=== PATIENT | male | born 1970 | race African-American/Black ===

== ENCOUNTER 2023-07-13 02:21 | Emergency (ER) | payer BC, SELFPAY ==
[2023-07-13] MEDS ORDERED: TDAP (DIPHTH,PERTUSS(ACELL),TET VAC) 0.5 ML VIAL IMVAC ONE (02:48)
[2023-07-13] MEDS ORDERED: NA CHLORIDE 0.9% 1,000 ML ONE (02:48)
[2023-07-13 03:05] LABS: Absolute Eosinophils 0.1 K/uL (0-0.5); Absolute Monocytes 0.8 K/uL (0.1-1.3); Absolute Neutrophil 7.4 K/uL (1.8-8.0); Basophils % 0.4 % (0-1.3); Eosinophils % 0.6 % (0-4.4); Hematocrit 38.9 % (39.6-49.0); Hemoglobin 13.2 g/dL (13.6-17.9); Lymphocytes % 10.4 % (15.3-44.8); MCH 30.9 pg (27.0-35.0); MCHC 33.9 g/dL (32.0-36.0); MCV 90.9 fL (80-100); MPV 7.2 fL (7.6-11.3); Monocytes % 8.2 % (3.3-12.3); Neutrophils % 80.4 % (41.7-73.7); Platelets 281 thou/uL (152-406); RBC Red Blood Cell Count 4.28 M/uL (4.33-5.43); Red Cell Distribution Width 14.2 % (12.1-15.2)
[2023-07-13 03:20] LABS: ALT/SGPT 33 U/L (16-61); AST/SGOT 16 U/L (15-37); Albumin 3.9 g/dL (3.4-5.0); Alkaline Phosphatase 74 U/L (45-117); Anion Gap 6.3 mEq/L (5.0-15.0); BUN Blood Urea Nitrogen 14 mg/dL (7-18); Bicarbonate 31 mEq/L (21-32); Bilirubin Direct 0.1 mg/dL (0-0.2); Bilirubin Indirect, Calculated 0.2 mg/dL (0.2-0.8); Bilirubin Total 0.3 mg/dL (0.2-1.0); Glomerular Filtration Rate 76 ml/min (=/>90); Glucose Level 112 mg/dL (74-106); Magnesium 2.4 mg/dL (1.6-2.4); NT PRO-BNP 27 pg/mL (<125); Potassium 3.3 mEq/L (3.5-5.1); Protein, Total 7.9 g/dL (6.4-8.2); Sodium Level 137 mEq/L (136-145); Troponin High Sensitivity 8.8 pg/mL (<58.9)
[2023-07-13 03:49] LABS: C-Reactive Protein < 2.90 mg/L (<3.00)
[2023-07-13] MEDS ORDERED: ONDANSETRON 4 MG/2 ML VIAL ONE (05:10)
[2023-07-13] MEDS ORDERED: LIDOCAINE 1% 20 ML MDV ONE (05:10)
[2023-07-13] MEDS ORDERED: KETOROLAC 30 MG/ML INJ ONE (05:11)
[2023-07-13] MEDS ORDERED: cloNIDine HCL 0.1 MG TAB ONE (05:11)
[2023-07-13] MEDS ORDERED: MORPHINE 4 MG/ML SYR ONE ×2 (05:11→06:47)
--- NOTE | 2023-07-13 05:43 | EDPHYS ---
Physician Documentation [facility] Name: Valdez Aguiar Age: 52 yrs Sex: Male : 1970 Arrival Date: 07/13/2023 Time: 02:21 Bed 5 Private MD: ED Physician Joe Hwang HPI: 07/12 02:37 This 52 yrs old Black Male presents to ER via EMS with complaints of Fall Injury. sp4 05:33 52-year-old male presents by EMS after reported syncopal episode and fall at his job at [employer]. Presents with multiple facial contusions and lacerations. Patient reported that one of his teeth was knocked out. Patient states has had syncopal episode and fell face into the gravel. This happened roughly just after midnight. Patient was brought here with EMS.. Historical: - Allergies: 02:28 No Known Allergies; bm8 - Home Meds: 02:28 None [Active]; bm8 - PMHx: 02:28 None; bm8 - PSHx: 02:28 Unable to Obtain; bm8 - Immunization history:: Adult Immunizations unknown. - Infectious Disease History:: Denies. - Social history:: Smoking status: Patient reports the use of cigarette tobacco products, cigars. - Family history:: not pertinent. ROS: 05:33 Constitutional: Negative for fever, chills, and weight loss, positive facial injuries, sp4 positive syncope 05:33 All other systems are negative, Exam: 05:32 Constitutional: This is a well developed, well nourished patient who is awake, alert, sp4 and in no acute distress. Head/Face: Normocephalic, are multiple facial contusions and multiple facial abrasions including significant laceration to upper forehead and also laceration to philtrum. Patient has missing left upper incisor. Eyes: Pupils equal round and reactive to light, extra-ocular motions intact. Lids and lashes normal. Conjunctiva and sclera are not injected. Cornea within normal limits. Periorbital areas with no swelling, redness, or edema. ENT: Nares patent. No nasal discharge, no septal abnormalities noted. Tympanic membranes are normal and external auditory canals are clear. Oropharynx with no redness, swelling, or masses, exudates, or evidence of obstruction, uvula midline. Mucous membranes moist. Neck: Trachea midline, no thyromegaly or masses palpated, and no cervical lymphadenopathy. Supple, full range of motion without nuchal rigidity, or vertebral point tenderness. Chest/axilla: Normal chest wall appearance and motion. Nontender with no deformity. No lesions are appreciated. Cardiovascular: Regular rate and rhythm with a normal S1 and S2. No gallops, murmurs, or rubs. Normal PMI, no JVD. No pulse deficits. Respiratory: Lungs have equal breath sounds bilaterally, clear to auscultation and percussion. No rales, rhonchi or wheezes noted. No increased work of breathing, no retractions or nasal flaring. Abdomen/GI: Soft, with normal bowel sounds. No distension or tympany. No guarding or rebound. No evidence of tenderness throughout. Back: No spinal tenderness. No costovertebral tenderness. Male : Normal genitalia with no discharge or lesions. Skin: Warm, dry with normal turgor. Normal color with no rashes, no lesions, and no evidence of cellulitis. MS/ Extremity: Pulses equal, no cyanosis. Neurovascular intact. Full, normal range of motion. Neuro: Awake and alert, GCS 15, oriented to person, place, time, and situation. Cranial nerves II-XII grossly intact. Motor strength 5/5 in all extremities. Sensory grossly intact. Psych: Awake, alert, with orientation to person, place and time. Behavior, mood, and affect are within normal limits 05:32 ECG was reviewed by the Attending Physician. EKG at 0 233, normal sinus rhythm normal EKG Vital Signs: 02:26 BP 187 / 110; Pulse 64; Resp 16; Temp 97; Pulse Ox 97% on R/A; Pain 8/10; bm8 05:26 BP 161 / 107; Pulse 84; Resp 17; Temp 97; Pulse Ox 99% on R/A; Pain 6/10; bm8 06:27 BP 154 / 100; Pulse 77; Resp 18; Temp 97.3; Pulse Ox 97% ; Pain 4/10; bm8 02:26 Pain Scale: Adult bm8 05:26 Pain Scale: Adult bm8 06:27 Pain Scale: Adult bm8 [place] Com[place] Score: 02:35 Eye Response: spontaneous(4). Motor Response: obeys commands(6). Verbal Response: bm8 oriented(5). Total: 15. 05:26 Eye Response: spontaneous(4). Motor Response: obeys commands(6). Verbal Response: bm8 oriented(5). Total: 15. Laceration: 06:39 Wound Repair of 2cm ( 0.8in ) subcutaneous laceration to forehead. Irregularly shaped.. sp4 Hemostasis noted.. Distal neuro/vascular/tendon intact. Anesthesia: Wound infiltrated with 6 mls of 1% lidocaine. Wound prep: Moderate cleansing by me, Copious irrigation. Skin closed with 3 4-0 Prolene using interrupted sutures and sterile technique. Dressed with non-adherent dressing. Patient tolerated well. 06:41 Wound Repair of 2cm ( 0.8in ) subcutaneous laceration to nasal septum. Irregularly sp4 shaped.. Hemostasis noted.. Gross contamination.. Distal neuro/vascular/tendon intact. Anesthesia: Wound infiltrated with 5 mls of 1% lidocaine. Wound prep: Moderate cleansing by me, Copious irrigation. Skin closed with 3 4-0 Prolene using interrupted sutures and sterile technique. Dressed with left to air. Patient tolerated well. 06:41 Wound Repair of 2cm ( 0.8in ) subcutaneous laceration to philtrum. Irregularly shaped.. sp4 Hemostasis noted.. Gross contamination.. Distal neuro/vascular/tendon intact. Anesthesia: Wound infiltrated with 2 mls of 1% lidocaine. Wound prep: Moderate cleansing by me, Copious irrigation. Skin closed with 4 4-0 Prolene using interrupted sutures and sterile technique. Dressed with left to air . Patient tolerated well. MDM: 02:39 Patient medically screened. sp4 04:20 ED course: IMPRESSION: 1. Vertical fracture through the left of midline frontal sp4 calvarium, extending through the left frontal sinus and into the superior medial left orbital roof and lamina papyracea. Additional vertical fracture extension through the lateral aspect of the anterior left maxillary sinus wall. 2. Hemorrhage demonstrated in the left greater than right maxillary sinuses, left frontal sinus, and bilateral ethmoid air cells. 3. Gas demonstrated within the superior left anterior extraconal space, as well as along the posterior lateral margins of the left maxillary sinus. 4. Impacted fractures of the bilateral nasal bones with overlying soft tissue swelling. 5. Mild right frontal scalp and left supraorbital soft tissue contusions. 6. No acute intracranial abnormality. No acute osseous abnormality of the cervical spine. Dr. Sosa discussed these findings regarding the left frontal calvarial fracture with left orbital and paranasal sinus involvement with Joe Hwang MD via telephone at approximately 04:32 hours EST on 07/13/2023.. ED course: CT report - COMPARISON: No relevant prior studies available. FINDINGS: BRAIN: No extra-axial fluid collection. No intracranial hemorrhage. No focal arenas-white matter differentiation abnormality. MIDLINE SHIFT: No midline shift. VENTRICLES: Unremarkable No ventriculomegaly. SKULL: Impacted fractures of the bilateral nasal bones with overlying soft tissue swelling. Vertical fracture through the left of midline frontal calvarium, extending through the left frontal sinus and into the superior medial left orbital ceiling and lamina papyracea. Nondisplaced sagittally oriented fracture through the lateral aspect of the anterior left maxillary sinus wall. Hemorrhage demonstrated in the left greater than right maxillary sinuses, left frontal sinus, and bilateral ethmoid air cells. Gas demonstrated within the superior left anterior extraconal space, as well as along the posterior lateral margins of the left maxillary sinus. SINUSES: See findings above and below. MASTOID AIR CELLS: Unremarkable as visualized. No mastoid effusion. ORBITS: No intraorbital hematoma is identified. The bilateral globes appear intact. VERTEBRAE: Multilevel cervical spondylosis. Reversal of the normal lordosis of the cervical spine as the patient is positioned. Appearance is nonspecific and could be positional or seen with muscular strain or spasm. No acute fracture or acute vertebral body height loss. No significant subluxation. DISCS/SPINAL CANAL/NEURAL FORAMINA: No acute findings. No transtentorial herniation. No significant kylie spinal canal stenosis. SOFT TISSUES: Mild right frontal scalp and left supraorbital soft tissue contusions, with some subcutaneous emphysema suggesting laceration. No abnormal prevertebral soft tissue swelling. OTHER FINDINGS: Dens is intact. No dislocation. Craniocervical orientation is normal.. 05:43 Data reviewed: vital signs, nurses notes, EMS record, lab test result(s), EKG, sp4 radiologic studies, CT scan, plain films. 06:41 Differential diagnosis: abrasion, closed head injury, contusion, fracture, laceration, sp4 multiple trauma, sprain, strain. Consideration of Admission/Observation Escalation of care including admission/observation considered. ED course: Patient at this time stable for EMS transfer to [facility] for further evaluation. 07/12 02:36 Order name: Basic Metabolic Panel; Complete Time: 04:00 4 07/12 02:36 Order name: CBC with Diff; Complete Time: 04:00 [facility] 07/12 02:36 Order name: LFT's; Complete Time: 04:00 4 07/12 02:36 Order name: Magnesium; Complete Time: 04:00 4 07/12 02:36 Order name: NT PRO-BNP; Complete Time: 04:00 [facility] 07/12 02:36 Order name: PT-INR; Complete Time: 04:00 4 07/12 02:36 Order name: Troponin HS; Complete Time: 04:00 [facility] 07/12 02:36 Order name: Urine Drug Screen [facility] 07/12 02:36 Order name: Alcohol Level; Complete Time: 04:00 [facility] 07/12 02:37 Order name: CRP; Complete Time: 04:00 [facility] 07/12 02:37 Order name: TSH; Complete Time: 04:00 [facility] 07/12 02:37 Order name: T4 Free; Complete Time: 04:00 [facility] 07/12 02:36 Order name: CT Head C Spine [facility] 07/12 02:36 Order name: CT Facial Bones W/O Con [facility] 07/12 02:37 Order name: Chest Single View XRAY 4 07/12 05:44 Order name: Shoulder Right (2 View) XRAY [facility] 07/12 05:44 Order name: Shoulder Left (2 View) XRAY 4 07/12 02:36 Order name: Cardiac monitoring; Complete Time: 02:53 [facility] 07/12 02:36 Order name: EKG - Nurse/Tech; Complete Time: 02:37 [facility] 07/12 02:36 Order name: IV Saline Lock; Complete Time: 02:53 [facility] 07/12 02:36 Order name: Labs collected and sent; Complete Time: 02:53 [facility] 07/12 02:36 Order name: O2 Per Protocol; Complete Time: 02:53 [facility] 07/12 02:36 Order name: O2 Sat Monitoring; Complete Time: 02:53 [facility] 07/12 04:57 Order name: Dressing - Wound; Complete Time: 05:26 [facility] 07/12 04:57 Order name: Gloves, Sterile; Complete Time: 05:26 sp4 07/12 04:57 Order name: Setup Suture Tray; Complete Time: : sp4 EC:32 Rate is 67 beats/min. Rhythm is regular, Normal Sinus Rhythm. QRS [place] is Normal. DC sp4 interval is normal. QRS interval is normal. QT interval is normal. No Q waves. T waves are Normal. No ST changes noted. Clinical impression: Normal ECG. Interpreted by me. Reviewed by me. Administered Medications: 02:52 Drug: NS 0.9% IV 1000 ml IV at 1 bolus Per protocol; 1000 mL bolus Route: IV; Rate: 1 bm8 bolus; Site: right antecubital; 06:55 Follow up: Response: No adverse reaction; IV Status: Completed infusion; IV Intake: bm8 1000ml 02:52 Drug: Boostrix Tdap IM 0.5 ml IM once; as a single dose Route: IM; Site: right deltoid; bm8 02:55 Follow up: Pin or Peg lot: [id number] exp date: 03/28/25 bm8 05:24 Drug: cloNIDine PO 0.1 mg PO once Route: PO; bm8 06:26 Follow up: Response: No adverse reaction bm8 05:25 Drug: Ondansetron IVP 4 mg IVP once; over 2 minutes Route: IVP; Site: right antecubital;bm8 06:27 Follow up: Response: No adverse reaction bm8 05:26 Drug: morphine IVP or IV 4 mg IVP once over 4 mins Route: IVP; Infused Over: 4 mins; bm8 Site: right antecubital; 06:27 Follow up: Response: No adverse reaction bm8 05:26 Drug: Ketorolac IVP 30 mg IVP once Route: IVP; Site: right antecubital; bm8 06:27 Follow up: Response: No adverse reaction bm8 06:26 Drug: Lidocaine Infiltration (1 %) 20 ml 20 ml Infiltration once; to bedside Volume: 20 bm8 ml; Route: Infiltration; 06:27 Follow up: Response: No adverse reaction bm8 06:51 Drug: morphine IVP or IV 4 mg IVP once over 4 mins Route: IVP; Infused Over: 4 mins; bm8 Site: right antecubital; 06:52 Follow up: Response: No adverse reaction; Medication administered at discharge. bm8 Disposition Summary: 07/13/23 05:42 Transfer Ordered Notes: Transfer Location: [facility]-System sp4 Reason: Higher level of care sp4 Condition: Stable sp4 Problem: new sp4 Symptoms: have improved sp4 Accepting Physician: [facility] Trauma Surgery (07/13/23 06:53) bm8 Diagnosis - Left frontal bone fracture, left frontal calvarial fracture, left frontal sinus sp4 fracture, orbital little fracture, additional vertical fracture extending from the left maxillary sinus. - Syncope and collapse, left maxillary sinus hemorrhage, left periorbital contusion, sp4 left intraorbital air, bilateral nasal bone fracture, forehead laceration, nasal philtrum laceration Forms: - Medication Reconciliation Form sp4 - SBAR form sp4 Signatures: Dispatcher [employer] EDMS Shabana Posey RN RN [id number] Joe Hwang MD MD sp4 Néstor Stephen RN RN bm8 Corrections: (The following items were deleted from the chart) 02:37 02:37 BASIC METABOLIC PANEL+C.LAB.BRZ ordered. EDMS EDMS 02:37 02:37 CBC+H.LAB.BRZ ordered. EDMS EDMS 02:37 02:37 HEPATIC FUNCTION+C.LAB.BRZ ordered. EDMS EDMS 02:37 02:37 MAGNESIUM+C.LAB.BRZ ordered. EDMS EDMS 02:37 02:37 PROBNP+C.LAB.BRZ ordered. EDMS EDMS 02:37 02:37 PROTIME (+INR)+COAG.LAB.BRZ ordered. EDMS EDMS 02:37 02:37 Troponin High Sensitivity+C.LAB.BRZ ordered. EDMS EDMS 02:37 02:37 URINE DRUG SCREEN+UC.LAB.BRZ ordered. EDMS EDMS 02:37 02:37 ETHANOL+C.LAB.BRZ ordered. EDMS EDMS 02:37 02:37 Head C Spine MPR Wo Con+CT.RAD.BRZ ordered. EDMS EDMS 02:37 02:37 Facial Bones W/ MPR+CT.RAD.BRZ ordered. EDMS EDMS 05:44 05:44 Shoulder Left 2 View+RAD.RAD.BRZ ordered. EDMS EDMS 06:35 05:42 [facility] Trauma Surgery sp4 sp4 06:53 06:35 [facility] Trauma Surgery sp4 bm8
--- NOTE | 2023-07-13 05:43 | ER ---
Nurse's Notes [facility] Name: Valdez Aguiar Age: 52 yrs Sex: Male : 1970 Arrival Date: 07/13/2023 Time: 02:21 Bed 5 Private MD: Diagnosis: Left frontal bone fracture, left frontal calvarial fracture, left frontal sinus fracture, orbital little fracture, additional vertical fracture extending from the left maxillary sinus. ;Syncope and collapse, left maxillary sinus hemorrhage, left periorbital contusion, left intraorbital air, bilateral nasal bone fracture, forehead laceration, nasal philtrum laceration Presentation: 07/12 02:26 Chief complaint: EMS states: pt was going out for a smoke break and tripped over bm8 something on the way out. pt has injuries to face, missing at least two front teeth, and c/o head and neck pain. this occurred around 0015 this morning. Coronavirus screen: At this time, the client does not indicate any symptoms associated with coronavirus-19. Ebola Screen: Patient negative for fever greater than or equal to 101.5 degrees Fahrenheit, and additional compatible Ebola Virus Disease symptoms Patient denies exposure to infectious person. Patient denies travel to an Ebola-affected area in the 21 days before illness onset. No symptoms or risks identified at this time. Initial Sepsis Screen: Does the patient meet any 2 criteria? No. Patient's initial sepsis screen is negative. Does the patient have a suspected source of infection? No. Patient's initial sepsis screen is negative. Risk Assessment: Do you want to hurt yourself or someone else? Patient reports no desire to harm self or others. Onset of symptoms was July 13, 2023 at 00:15. 02:26 Method Of Arrival: EMS: [facility] bm8 02:26 Acuity: KATHRYN 3 bm8 Triage Assessment: 02:28 General: Appears in no apparent distress. uncomfortable, Behavior is calm, drowsy. bm8 Pain: Complains of pain in scalp and posterior cervical area Pain does not radiate. Pain currently is 8 out of 10 on a pain scale. Quality of pain is described as aching, crampy, Pain began 2 hours ago. EENT: Poor dentition noted. Absence of teeth noted - upper left central incisor (#9), upper left lateral incisor (#10) and upper left cuspid (#11) Reports pain in forehead, nose and mouth. Neuro: Level of Consciousness is awake, alert, obeys commands, Oriented to person, place, time, situation, Appropriate for age Reports loss of consciousness after fall. Cardiovascular: No deficits noted. Heart tones S1 S2 present Capillary refill < 3 seconds Patient's skin is warm and dry. Respiratory: Airway is patent Respiratory effort is even, unlabored, Respiratory pattern is regular, symmetrical, Breath sounds are clear bilaterally. GI: No deficits noted. No signs and/or symptoms were reported involving the gastrointestinal system. : No deficits noted. No signs and/or symptoms were reported regarding the genitourinary system. Derm:. Injury Description: Abrasion sustained to face Head injury sustained to face. Historical: - Allergies: 02:28 No Known Allergies; bm8 - Home Meds: : None [Active]; bm8 - PMHx: : None; bm8 - PSHx: 02:28 Unable to Obtain; bm8 - Immunization history:: Adult Immunizations unknown. - Infectious Disease History:: Denies. - Social history:: Smoking status: Patient reports the use of cigarette tobacco products, cigars. - Family history:: not pertinent. Screenin:35 [facility] ED Fall Risk Assessment (Adult) History of falling in the last 3 months, bm8 including since admission Yes- single mechanical fall (1 pt) Confusion or Disorientation No (0 pts) Intoxicated or Sedated No (0 pts) Impaired Gait No (0 pts) Mobility Assist Device Used No (0 pt) Altered Elimination No (0 pt) Score/Fall Risk Level 0 - 2 = Low Risk Oriented to surroundings, Maintained a safe environment, Educated pt \T\ family on fall prevention, incl call for assistance when getting out of bed. Abuse screen: Denies threats or abuse. Nutritional screening: No deficits noted. Tuberculosis screening: No symptoms or risk factors identified. Assessment: 02:35 Reassessment: see triage note. bm8 05:26 Reassessment: Patient appears in no apparent distress at this time. Patient and/or bm8 family updated on plan of care and expected duration. Pain level reassessed. Patient is alert, oriented x 3, equal unlabored respirations, skin warm/dry/pink. General: Appears in no apparent distress. uncomfortable, Behavior is calm, cooperative, appropriate for age. Pain: Complains of pain in face Pain does not radiate. Pain currently is 6 out of 10 on a pain scale. Quality of pain is described as aching, Current management is with Morphine, toradol. Neuro: Level of Consciousness is awake, alert, obeys commands, Oriented to person, place, time, situation, Appropriate for age Medical Office Representative are equal bilaterally Moves all extremities. Full function Speech is normal, Facial symmetry appears normal, Pupils are PERRLA, Intact Denies blurred vision dizziness. Cardiovascular: Capillary refill < 3 seconds Patient's skin is warm and dry. Respiratory: No deficits noted. Airway is patent Respiratory effort is even, unlabored, Respiratory pattern is regular, symmetrical, Breath sounds are clear bilaterally. GI: No deficits noted. No signs and/or symptoms were reported involving the gastrointestinal system. : No deficits noted. No signs and/or symptoms were reported regarding the genitourinary system. EENT: Absence of teeth noted - upper left cuspid (#11) and upper left lateral incisor (#10) and upper left central incisor (#9) Reports at least one more loose tooth, possibly two. Injury Description: Abrasion sustained to face Laceration sustained to top of head, forehead and nose is clean, jagged, 0.5 to 2.5 cm long, not bleeding. Vital Signs: 02:26 BP 187 / 110; Pulse 64; Resp 16; Temp 97; Pulse Ox 97% on R/A; Pain 8/10; bm8 05:26 BP 161 / 107; Pulse 84; Resp 17; Temp 97; Pulse Ox 99% on R/A; Pain 6/10; bm8 06:27 BP 154 / 100; Pulse 77; Resp 18; Temp 97.3; Pulse Ox 97% ; Pain 4/10; bm8 02:26 Pain Scale: Adult bm8 05:26 Pain Scale: Adult bm8 06:27 Pain Scale: Adult bm8 Jerson Coma Score: 02:35 Eye Response: spontaneous(4). Motor Response: obeys commands(6). Verbal Response: bm8 oriented(5). Total: 15. 05:26 Eye Response: spontaneous(4). Motor Response: obeys commands(6). Verbal Response: bm8 oriented(5). Total: 15. ED Course: 02:23 Patient arrived in ED. wm 02:25 Néstor Stephen, RN is Primary Nurse. bm8 02:28 Triage completed. bm8 02:28 Arm band placed on right wrist. Patient placed in an exam room, on a stretcher. bm8 02:35 Joe Hwang MD is Attending Physician. sp4 02:35 Patient has correct armband on for positive identification. Bed in low position. Call bm8 light in reach. Side rails up X 1. Adult w/ patient. Client placed on continuous cardiac and pulse oximetry monitoring. NIBP monitoring applied. Pulse ox on. NIBP on. Door closed. Noise minimized. Warm blanket given. Verbal reassurance given. 02:[address] via stretcher. bm8 02:53 Initial lab(s) drawn, by me, sent to lab. Inserted saline lock: 20 gauge in right bm8 antecubital area, using aseptic technique. Blood collected. 02:59 CT Head C Spine In Process Unspecified. EDMS 02:59 CT Facial Bones W/O Con In Process Unspecified. EDMS 03:36 Chest Single View XRAY In Process Unspecified. EDMS 05:[address] [facility], spoke with Carol Ziegler. 05:26 Provided Education on: discussed possible need for transfer.. cardiac monitor on. Door bm8 closed. Noise minimized. Lights dimmed. Warm blanket given. Verbal reassurance given. Head of bed elevated. 05:26 One-on-one care X 15 minutes. bm8 05:26 Assist provider with laceration repair on head that was between 2.6 to 7.5 cm using bm8 sutures. Set up tray. Performed by Joe Hwang MD Dressed with Neosporin, Patient tolerated well. Irrigation of laceration on face irrigated with normal saline Hibiclens solution Patient tolerated well. 05:[address] [facility] ER by Dr. Miller, S \T\ [id number] per Carol Ziegler. wm 06:07 Shoulder Right (2 View) XRAY In Process Unspecified. EDMS 06:07 Shoulder Left (2 View) XRAY In Process Unspecified. EDMS 06:14 EMS will transport with an ETA of clam picker \T\ [id number]. wm 06:53 Patient transferred, IV remains in place. bm8 Administered Medications: 02:52 Drug: NS 0.9% IV 1000 ml IV at 1 bolus Per protocol; 1000 mL bolus Route: IV; Rate: 1 bm8 bolus; Site: right antecubital; 06:55 Follow up: Response: No adverse reaction; IV Status: Completed infusion; IV Intake: bm8 1000ml 02:52 Drug: Boostrix Tdap IM 0.5 ml IM once; as a single dose Route: IM; Site: right deltoid; bm8 02:55 Follow up: PowerPot lot: [id number] exp date: 03/28/25 bm8 05:24 Drug: cloNIDine PO 0.1 mg PO once Route: PO; bm8 06:26 Follow up: Response: No adverse reaction bm8 05:25 Drug: Ondansetron IVP 4 mg IVP once; over 2 minutes Route: IVP; Site: right antecubital;bm8 06:27 Follow up: Response: No adverse reaction bm8 05:26 Drug: morphine IVP or IV 4 mg IVP once over 4 mins Route: IVP; Infused Over: 4 mins; bm8 Site: right antecubital; 06:27 Follow up: Response: No adverse reaction bm8 05:26 Drug: Ketorolac IVP 30 mg IVP once Route: IVP; Site: right antecubital; bm8 06:27 Follow up: Response: No adverse reaction bm8 06:26 Drug: Lidocaine Infiltration (1 %) 20 ml 20 ml Infiltration once; to bedside Volume: 20 bm8 ml; Route: Infiltration; 06:27 Follow up: Response: No adverse reaction bm8 06:51 Drug: morphine IVP or IV 4 mg IVP once over 4 mins Route: IVP; Infused Over: 4 mins; bm8 Site: right antecubital; 06:52 Follow up: Response: No adverse reaction; Medication administered at discharge. bm8 Medication: 02:53 Vaccine Information Statement (VIS) provided today. Questions and/or concerns bm8 addressed. VIS edition date: October 16, 2020. Intake: 06:55 IV: 1000ml; Total: 1000ml. bm8 Outcome: 05:42 ER care complete, transfer ordered by sp4 06:51 Transferred by ground EMS to [facility], Transfer form bm8 completed. X-rays sent w/ patient. Note: REPORT GIVEN TO TAVERAS RN AT [facility] 06:51 Condition: stable 06:51 Instructed on the need for transfer, Demonstrated understanding of instructions, follow-up care, 06:53 Patient left the ED. bm8 Signatures: Dispatcher [employer] Shyann Go Sergey, MD MD sp4 Néstor Stephen RN RN bm8 Corrections: (The following items were deleted from the chart) 02:54 02:35 VIS not applicable for this client. bm8 bm8
[2023-07-13 07:04] LABS: Barbiturates NEGATIVE (NEGATIVE); Benzodiazepines NEGATIVE (NEGATIVE); Cocaine NEGATIVE (NEGATIVE); METHAMPHETAM NEGATIVE (NEGATIVE); Methadone NEGATIVE (NEGATIVE); Opiates NEGATIVE (NEGATIVE); Phencyclidine NEGATIVE (NEGATIVE); THC Cannibis NEGATIVE (NEGATIVE)
[2023-07-13 07:14] VITALS: BP 154/100; TEMP 97.3; O2SAT 97
--- NOTE | 2023-07-13 10:44 | RAD REPORT ---
EXAM DESCRIPTION: Shoulder Left 2 View XR Left Shoulder 2 Views CLINICAL HISTORY: Left shoulder pain COMPARISON: None TECHNIQUE: Left Shoulder 2 Views FINDINGS: No fracture or dislocation. No significant sclerotic/lytic bone lesion. Moderate left acromioclavicular joint space narrowing with irregularity. Soft tissues unremarkable. IMPRESSION: Moderate left acromioclavicular DJD. Electronically signed by: Mitch Gibbs MD 07/13/2023 08:07 AM CDT Due to temporary technical issues with the PACS/Fluency reporting system, reports are being signed by the in house radiologist without review as a courtesy to ensure prompt reporting. The interpreting r adiologist is fully responsible for the content of the report.
--- NOTE | 2023-07-13 10:47 | RAD REPORT ---
EXAM DESCRIPTION: XR Right Shoulder Complete, 2 or More Views CLINICAL HISTORY: The patient is 52 years old and is Male; shoulder pain TECHNIQUE: Two or more views of the right shoulder. COMPARISON: None FINDINGS: BONES/JOINTS: Cortical irregularity of the inferior lateral aspect of the right clavicle , possibly reflecting a fracture. Degenerative changes of the right acromioclavicular joint. Otherwise, no appreciable acute fracture. No subluxation or dislocation. SOFT TISSUES: Unremarkable IMPRESSION: 1. Cortical irregularity of the inferior lateral aspect of the right clavicle, possibl y reflecting a fracture or osteophyte. Correlation with point tenderness recommended. 2. Otherwise, no acute findings in the right shoulder. Electronically signed by: Lonnie Sosa MD 07/13/2023 08:05 AM CDT Due to temporary technical issues with the PACS/Fluency reporting system, reports are being signed by the in house radiologist without review as a courtesy to ensure prompt reporting. The interpreting r adiologist is fully responsible for the content of the report.
--- NOTE | 2023-07-13 10:54 | RAD REPORT ---
EXAM DESCRIPTION: XR Chest 1 View AP CLINICAL HISTORY: Chest Pain COMPARISON: None TECHNIQUE: Chest 1 View AP FINDINGS: Trachea midline. Heart size and pulmonary vessels within normal limits. Lungs clear without evidence of consolidation, mass, or significant pulmonary edema. No significant pleural effusion or pneumothorax. Bones unremarkable. IMPRESSION: Unremarkable chest radiograph. Electronically signed by: Mitch Gibbs MD 07/13/2023 05:43 AM CDT Due to temporary technical issues with the PACS/Fluency reporting system, reports are being signed by the in house radiologist without review as a courtesy to ensure prompt reporting. The interpreting r adiologist is fully responsible for the content of the report.
--- NOTE | 2023-07-13 11:46 | RAD REPORT ---
EXAM DESCRIPTION: CT Head, Maxillofacial and Cervical Spine Without Intravenous Contrast CLINICAL HISTORY: The patient is 52 years old and is Male; FACIAL PAIN Bed Name: 5 TECHNIQUE: Axial computed tomography images of the head/brain, face and cervical spine without intra venous contrast. Sagittal and coronal reformatted images were created and reviewed. This CT exam was performed using one or more of the following dose reduction techniques: automated exposure cont rol, adjustment of the mA and/or kV according to patient size, and/or use of iterative reconstruction technique. COMPARISON: No relevant prior studies available. FINDINGS: BRAIN: No extra-axial fluid collection. No intracranial hemorrhage. No focal arenas-white matter differentiation abnormality. MIDLINE SHIFT: No midline shift. VENTRICLES: Unremarkable No ventriculomegaly. SKULL: Impacted fractures of the bilateral nasal bones with overlying soft tissue swelling. Verti elsie fracture through the left of midline frontal calvarium, extending through the left frontal sinus and into the superior medial left orbital ceiling and lamina papyracea. Nondisplaced sagittally orien coleen fracture through the lateral aspect of the anterior left maxillary sinus wall. Hemorrhage demonstrated in the left greater than right maxillary sinuses, left frontal sinus, and bilateral ethmoid air cells. Gas demonstrated within the superior left anterior extraconal space, as well as along the pos terior lateral margins of the left maxillary sinus. SINUSES: See findings above and below. MASTOID AIR CELLS: Unremarkable as visualized. No mastoid effusion. ORBITS: No intraorbital hematoma is identified. The bilateral globes appear intact. VERTEBRAE: Multilevel cervical spondylosis. Reversal of the normal lordosis of the cervical spine as the patient is positioned. Appearanc e is nonspecific and could be positional or seen with muscular strain or spasm. No acute fracture or acute vertebral body height loss. No significant subluxation. DISCS/SPINAL CANAL/NEURAL FORAMINA: No acute findings. No transtentorial herniation. No significant kylie spinal canal stenosis. SOFT TISSUES: Mild right frontal scalp and left supraorbital soft tissue contusions, with some subcutaneous emphysema suggesting laceration. No abnormal prevertebral soft tissue swelling. OTHER FINDINGS: Dens is intact. No dislocation. Craniocervical orientation is normal. IMPRESSION: 1. Vertical fracture through the left of midline frontal calvarium, extending through the left frontal sinus and into the superior medial left orbital roof and lamina papyracea. Additiona l vertical fracture extension through the lateral aspect of the anterior left maxillary sinus wall. 2. Hemorrhage demonstrated in the left greater than right maxillary sinuses, left frontal sinus, an d bilateral ethmoid air cells. 3. Gas demonstrated within the superior left anterior extraconal space, as well as along the screen vent binder ior lateral margins of the left maxillary sinus. 4. Impacted fractures of the bilateral nasal bones with overlying soft tissue swelling. 5. Mild right frontal scalp and left supraorbital soft tissue contusions. 6. No acute intracranial abnormality. No acute osseous abnormality of the cervical spine. Dr. Sosa discussed these findings regarding the left frontal calvarial fracture with left orbital an d paranasal sinus involvement with Joe Hwang MD via telephone at approximately 04:32 hours EST on 07/13/2023. Electronically signed by: Lonnie Sosa MD 07/13/2023 03:43 AM CDT Due to temporary technical issues with the PACS/Fluency reporting system, reports are being signed by the in house radiologist without review as a courtesy to ensure prompt reporting. The interpreting r adiologist is fully responsible for the content of the report.
--- NOTE | 2023-07-13 13:27 | EKG ---
Test Date: 2023-07-13 Test Time: 02:33:44 Dumbwaiter Operator: CATHERINE MEASUREMENT RESULTS: Intervals: Rate: 67 ID: [id number] QRSD: 100 QT: 384 QTc: 405 [place]: P: 39 ID: [id number] QRS: 56 T: 36 INTERPRETIVE STATEMENTS: Normal sinus rhythm Normal ECG No previous ECG available for comparison Electronically Signed On 07-13-23 13:26:48 CDT by Urbano Wilder
== END 2023-07-13 06:53 | disposition short-term general hospital (02) ==
LOC: ER 02:21
PROC: 0HQ1XZZ Repair Face Skin, External Approach (ICD-10-PCS; principal; 2023-07-13)
DX: S02.19XA Other fracture of base of skull, initial encounter for closed fracture (principal); S02.85XA Fracture of orbit, unspecified, initial encounter for closed fracture; S02.40DA Maxillary fracture, left side, initial encounter for closed fracture; S02.2XXA Fracture of nasal bones, initial encounter for closed fracture; S01.81XA Laceration without foreign body of other part of head, initial encounter; S01.21XA Laceration without foreign body of nose, initial encounter; R04.89 Hemorrhage from other sites in respiratory passages; H05.89 Other disorders of orbit; Z72.0 Tobacco use
CPT/HCPCS: 96361; 93005; 85025; 80048; 36415; 83735; 85610; 80076; 84443; 84484; 84439; 83880; 80307; 86140; 70450; 72125; 70486; 76377; 71045; 73030 ×2; 96375; 96372; 96374; 99285; 82077; 12014; J2001; J2405; J7030